=== PATIENT | female | born 1970 | race African-American/Black ===

== ENCOUNTER 2017-09-26 16:37 | Emergency (ER) | payer OTHER ==
[~2017-09-26] VITALS: Ht 172.7 cm; Wt 108.9 kg
[~2017-09-26 16:37] MED LIST: APAP500 PO; BACTRIM DS TAB1 EACH PO; CYCLOBENZAPRINE5 MG PO; ERYTHROMYCIN E3.5 G1 OPHTHALMIC; FLEXERIL PO; HYDROCHLOROTHIA25 M2 PO; IBUPROFEN 400400 M1 PO; IBUPROFEN 600600 M1 PO; IBUPROFEN 800800 M1 PO; KEFLEX500 MG PO; LABETALOL HCL100 MG PO; LISINOPRIL5 MG PO; LOPRESSOR25 PO; NAPROSYN500 MG PO; NOHOMEMEDICATIONS; NORCO 5-325 TA1 EACH PO; NORMODYNE200 MG PO; PRINIVIL5 MG PO; TRAMADOL 50 MG50 MG PO; ZOFRAN ODT4 MG PO
[2017-09-26 17:28] LABS: URINE BILIRUBIN NEGATIVE (Negative); URINE BLOOD NEGATIVE (Negative); URINE CLARITY CLEAR; URINE COLOR YELLOW; URINE GLUCOSE-RANDOM* NEGATIVE (Negative); URINE KETONES NEGATIVE (Negative); URINE LEUKOCYTES-REFLEX NEGATIVE (Negative); URINE NITRITE-REFLEX NEGATIVE (Negative); URINE PROTEIN (DIPSTICK) NEGATIVE (Negative); URINE UROBILINOGEN 0.2 E.U./dl (0.2-1.0)
[2017-09-26] MEDS ORDERED: HYDROCHLOROTHIA25 M2 PO (17:40)
[2017-09-26] MEDS ORDERED: MOBIC15 MG PO (17:40)
[2017-09-26] MEDS ORDERED: FLEXERIL PO (17:40)
== END 2017-09-26 17:59 | disposition home or self-care (01) ==
LOC: ER 16:37
PROVIDERS: Physician Assistant
DX: S29.012A Strain of muscle and tendon of back wall of thorax, initial encounter (principal); I10 Essential (primary) hypertension; X58.XXXA Exposure to other specified factors, initial encounter; Y93.89 Activity, other specified; Y92.89 Other specified places as the place of occurrence of the external cause; Y99.8 Other external cause status

== ENCOUNTER 2019-02-17 01:04 | Emergency (ER) | payer OTHER ==
[~2019-02-17] VITALS: Ht 167.6 cm; Wt 108.9 kg
[~2019-02-17 01:04] MED LIST changes: +MOBIC15 MG PO
[2019-02-17] MEDS ORDERED: IBUPROFEN 600600 M1 PO (02:23)
[2019-02-17] MEDS ORDERED: LISINOPRIL10 MG PO (02:23)
[2019-02-17 02:50] VITALS: BP 184/108
== END 2019-02-17 02:50 | disposition home or self-care (01) ==
LOC: ER 01:04
DX: M79.672 Pain in left foot (principal); I10 Essential (primary) hypertension; Z98.51 Tubal ligation status

== ENCOUNTER 2019-06-20 13:26 | Emergency (ER) | payer OTHER ==
[~2019-06-20] VITALS: Ht 167.6 cm; Wt 108.9 kg
[~2019-06-20 13:26] MED LIST changes: +LISINOPRIL10 MG PO
[2019-06-20] MEDS ORDERED: CLEOCIN HCL150 MG PO (15:50)
[2019-06-20] MEDS ORDERED: LISINOPRIL20 MG PO (15:53)
[2019-06-20 16:15] VITALS: BP 207/135
== END 2019-06-20 16:16 | disposition home or self-care (01) ==
LOC: ER 13:26
DX: K02.9 Dental caries, unspecified (principal); R22.0 Localized swelling, mass and lump, head; I10 Essential (primary) hypertension